=== PATIENT | male | born 1990 | race Caucasian/White ===

== ENCOUNTER 2021-02-12 10:12 | Emergency (ER) | payer SELFPAY ==
[~2021-02-12] VITALS: Ht 162.6 cm; Wt 64.9 kg
--- NOTE | 2021-02-12 10:28 | NUR ---
INITNAL CONTACT WITH PT: PT W/C/O RT FLANK PAIN SINCE 0800 THIS AM. HX OF KIDNEY STONES. BLOODY URINE PER PT. STEADY GAIT TO BATHRROOM AND TO BED. POSTIONED TO COMFORT. ATTACHED TO MONITORS. SHILAS. RICK.
[2021-02-12 10:43] LABS: MICROSCOPIC INDICATED
[2021-02-12 10:53] LABS: BASOPHILS % (AUTO) 1 % (0-1); EOSINOPHILS % (AUTO) 1 % (1-7); LYMPHOCYTES % (AUTO) 36 % (22-44); MEAN CORPUSCULAR HEMOGLOBIN 32.7 pg (27.5-34.5); MEAN CORPUSCULAR HGB CONC 35.1 g/dL (33.2-36.2); MEAN PLATELET VOLUME 6.6 fL (7.4-10.4); MONOCYTES % (AUTO) 9 % (2-9); NEUTROPHILS % (AUTO) 54 % (42-75); PLATELET COUNT 401 x10^3/uL (130-400); RED BLOOD COUNT 4.79 x10^6/uL (4.38-5.82); RED CELL DISTRIBUTION WIDTH 12.8 % (9.4-14.8)
[2021-02-12] MEDS ORDERED: ONDANSETRON 2MG/ML, 2ML ONE (10:53)
[2021-02-12] MEDS ORDERED: KETOROLAC 30 MG/1 ML ONE (10:53)
[2021-02-12 11:00] LABS: ALANINE AMINOTRANSFERASE 22 U/L (12-78); ALBUMIN 4.1 g/dL (3.4-5.0); ANION GAP 4 mmol/L (5-15); CALCIUM 9.2 mg/dL (8.5-10.1); CHLORIDE 106 mmol/L (98-107); CREATININE 1.15 mg/dL (0.7-1.3)
[2021-02-12] MEDS ORDERED: KETOROLAC 15 MG/1ML IVPush ONE (11:00)
[2021-02-12] MEDS ORDERED: ONDANSETRON 2MG/ML, 2ML IVPush ONE (11:00)
[2021-02-12 11:02] LABS: ALKALINE PHOSPHATASE 55 U/L (45-117); BILIRUBIN,TOTAL 0.7 mg/dL (0.2-1.0); TOTAL PROTEIN 7.2 g/dL (6.4-8.2)
--- NOTE | 2021-02-12 11:28 | NUR ---
PT BACK FROM CT. VSS. CABRERA.
[2021-02-12] MEDS ORDERED: MORPHINE SULFATE 4 MG/ML, 1ML ONE (11:43)
[2021-02-12] MEDS ORDERED: MORPHINE SULFATE 4 MG/ML, 1ML IVPush PRN (12:00)
[2021-02-12 12:42] VITALS: BP 122/67
== END 2021-02-12 12:44 | disposition home or self-care (01) ==
LOC: ED 12:35
DX: N20.1 Calculus of ureter (principal); Z88.5 Allergy status to narcotic agent
CPT/HCPCS: 36415; 74176; 80053; 81001; 83690; 85025; 87086; 96374; 96375; 99284; J1885; J2270; J2405